=== PATIENT | female | born 1995 | race Caucasian/White ===

== ENCOUNTER 2019-08-02 20:13 | Emergency (ER) | payer OTHER ==
[~2019-08-02] VITALS: Ht 157.5 cm; Wt 109.4 kg
[2019-08-02 20:39] VITALS: BP 141/89
[2019-08-02] MEDS ORDERED: SERT100T32 PO (21:08)
[2019-08-02] MEDS ORDERED: QUET400T4 PO (21:08)
[2019-08-02] MEDS ORDERED: OXYcodone/APAP 5/325MG TABLET ONE (21:22)
[2019-08-02] MEDS ORDERED: KETOROLAC 30 MG/1 ML ONE (21:22)
[2019-08-02] MEDS ORDERED: OXYcodone/APAP 5/325MG TABLET PO ONE (21:30)
[2019-08-02] MEDS ORDERED: KETOROLAC 30 MG/1 ML IM ONE (21:30)
== END 2019-08-02 22:21 | disposition home or self-care (01) ==
LOC: ED 21:45
DX: S39.012A Strain of muscle, fascia and tendon of lower back, initial encounter (principal); S33.5XXA Sprain of ligaments of lumbar spine, initial encounter; M54.16 Radiculopathy, lumbar region; X50.0XXA Overexertion from strenuous movement or load, initial encounter; Y93.89 Activity, other specified; Y92.89 Other specified places as the place of occurrence of the external cause; Y99.8 Other external cause status
CPT/HCPCS: 72110; 73502; 96372; 99284; J1885

== ENCOUNTER 2020-03-02 18:49 | Emergency (ER) | payer OTHER ==
[~2020-03-02] VITALS: Ht 157.5 cm; Wt 102.4 kg
[~2020-03-02 18:49] MED LIST: QUET400T4 PO; SERT100T32 PO
[2020-03-02] MEDS ORDERED: ALBUTEROL/IPRATROPIUM 2.5MG/0.5MG, 3 ML NPPB ONE (20:00)
[2020-03-02] MEDS ORDERED: ALBUTEROL/IPRATROPIUM 2.5MG/0.5MG, 3 ML ONE (20:03)
[2020-03-02 20:31] VITALS: BP 116/60
--- NOTE | 2020-03-02 20:31 | NUR ---
Report received from JAYLON Krishnamurthy at 1945. This RN assumed care. Patient received breathing tx and meds per jul. Patient feeling better stating, "I can now breathe."
--- NOTE | 2020-03-02 21:14 | NUR ---
D/c instructions given. All questions and concerns addressed. Patient ambulatory with a steady gait. Belongings with patient.
== END 2020-03-02 21:15 | disposition home or self-care (01) ==
LOC: ED 20:40
DX: J45.21 Mild intermittent asthma with (acute) exacerbation (principal); R06.00 Dyspnea, unspecified
CPT/HCPCS: 94640; 99283; J7512

== ENCOUNTER 2020-05-21 18:00 | Emergency (ER) | payer OTHER ==
[~2020-05-21] VITALS: Ht 175.3 cm; Wt 97.8 kg
[2020-05-21 18:16] VITALS: BP 130/91
== END 2020-05-21 18:43 | disposition home or self-care (01) ==
LOC: ED 18:10
DX: K08.89 Other specified disorders of teeth and supporting structures (principal); J45.909 Unspecified asthma, uncomplicated
CPT/HCPCS: 99283

== ENCOUNTER 2020-06-15 19:47 | Emergency (ER) | payer OTHER ==
[~2020-06-15] VITALS: Ht 154.9 cm; Wt 99.0 kg
--- NOTE | 2020-06-15 20:49 | NUR ---
pt ambulated to room. no acute distress, and airway intact, and good aeration and oxygenation.
[2020-06-15 20:53] VITALS: BP 110/65
== END 2020-06-15 21:05 | disposition home or self-care (01) ==
LOC: ED 21:04
DX: K02.9 Dental caries, unspecified (principal); R51.9 Headache, unspecified; F12.10 Cannabis abuse, uncomplicated; J45.909 Unspecified asthma, uncomplicated; F17.200 Nicotine dependence, unspecified, uncomplicated; Z72.9 Problem related to lifestyle, unspecified
CPT/HCPCS: 99283

== ENCOUNTER 2020-09-10 17:40 | Emergency (ER) | payer BC, OTHER ==
[~2020-09-10] VITALS: Ht 154.9 cm; Wt 92.5 kg
[2020-09-10 17:42] VITALS: BP 127/78
[2020-09-10] MEDS ORDERED: KETOROLAC 30 MG/1 ML ONE (18:09)
[2020-09-10] MEDS ORDERED: KETOROLAC 30 MG/1 ML IM ONE (18:30)
== END 2020-09-10 19:23 | disposition home or self-care (01) ==
LOC: ED 18:18
DX: S63.501A Unspecified sprain of right wrist, initial encounter (principal); J45.909 Unspecified asthma, uncomplicated; W01.0XXA Fall on same level from slipping, tripping and stumbling without subsequent striking against object, initial encounter; Y93.89 Activity, other specified; Y92.89 Other specified places as the place of occurrence of the external cause; Y99.8 Other external cause status
CPT/HCPCS: 29125; 73110; 96372; 99283; J1885

== ENCOUNTER 2020-11-19 08:32 | Emergency (ER) | payer BC ==
[~2020-11-19] VITALS: Ht 154.9 cm; Wt 89.3 kg
[2020-11-19 08:34] VITALS: BP 119/83
--- NOTE | 2020-11-19 09:38 | NUR ---
Patient given discharge instructions and they have confirmed that they understand the instructions. Patient ambulatory with steady gait.
== END 2020-11-19 09:39 | disposition home or self-care (01) ==
LOC: ED 09:29
DX: L55.0 Sunburn of first degree (principal)
CPT/HCPCS: 99282